=== PATIENT | female | born 1970 | race American Indian/Alaskan Native ===

== ENCOUNTER 2019-04-10 22:07 | Emergency (ER) | payer OTHER ==
--- NOTE | 2019-04-11 00:02 | XRay Report ---
LEFT FOOT 3 VIEWS INDICATION: Left middle toe pain and swelling. COMPARISON: No relevant prior imaging study available. FINDINGS: No acute, displaced fracture or dislocation is seen. No significant degenerative changes. No soft tis doug swelling. IMPRESSION: 1. No acute findings. Signer Name: Juan Herring MD Signed: 04/10/2019 11:58 PM Workstation Name: [id number]
--- NOTE | 2019-04-11 01:34 | Emergency Department Report ---
ED Lower Extremity HPI - General Chief Complaint: Extremity Injury, Lower Stated Complaint: MIDDLE TO ON LEFT FOOT EDEMA Time Seen by Provider: 04/11/19 01:04 Source: patient Mode of arrival: Ambulatory Limitations: No Limitations - History of Present Illness Initial Comments: This is a 49-year-old -[place] female who presents to the emergency room with pain and bruising to left third toe. Patient states she accidentally bumped her left foot against a barstool during her birthday celebration 3 weeks ago. She is currently soaking foot in [place] salt with minimal changes. She reports pain is worse with weightbearing or movement to left distal third toe. She denies numbness or tingling, swelling, or warmth. MD Complaint: foot injury Onset/Timin -: week(s) Injury: Toes: Left (Third distal toe) Type of Injury: blunt Place: street/outdoors Severity: moderate Severity scale (0 -10): 6 Improves With: immobilization Worsens With: weight bearing, movement, palpation Context: direct blow Associated Symptoms: ambulatory. denies: snap/pop sensation, swelling, numbness, tingling - Related Data Allergies Allergy/AdvReac Type Severity Reaction Status Date / Time No Known Allergies Allergy Unverified 04/10/19 23:38 ED Review of Systems ROS: Stated complaint: MIDDLE TO ON LEFT FOOT EDEMA Other details as noted in HPI Constitutional: denies: chills, fever Respiratory: denies: cough, shortness of breath, wheezing Cardiovascular: denies: chest pain, palpitations Gastrointestinal: denies: abdominal pain, nausea, diarrhea Musculoskeletal: arthralgia (Left third distal toe). denies: back pain, joint swelling Skin: denies: rash, lesions Neurological: denies: headache, weakness, paresthesias Psychiatric: denies: anxiety, depression ED Past Medical Hx - Past Medical History Previous Medical History?: No - Surgical History Past Surgical History?: No - Social History Smoking Status: Current Every Day Smoker Substance Use Type: None ED Physical Exam - General Limitations: No Limitations General appearance: alert, in no apparent distress - Respiratory Respiratory exam: Present: normal lung sounds bilaterally. Absent: respiratory distress - Cardiovascular Cardiovascular Exam: Present: regular rate, normal rhythm. Absent: systolic murmur, diastolic murmur, rubs, gallop - GI/Abdominal GI/Abdominal exam: Present: soft, normal bowel sounds - Extremities Exam Extremities exam: Present: normal inspection - Expanded Lower Extremity Exam Left Hip exam: Present: normal inspection, full ROM Upper Leg exam: Present: normal inspection, full ROM Knee exam: Present: normal inspection, full ROM, full knee extension. Absent: tenderness, swelling, abrasion, laceration, ecchymosis, deformity, crepidus, dislocation, erythema, effusion, pain w/ pronation/supination, posterior draw sign, pain/laxity with valgus, pain/laxity with varus Lower Leg exam: Present: normal inspection, full ROM Ankle exam: Present: normal inspection, full ROM Foot/Toe exam: Present: full ROM, tenderness (TTP third distal phalanx, pain with full range of motion). Absent: swelling, abrasion, laceration, ecchymosis, deformity, crepidus, erythema, amputation, puncture wound, nail avulsion Neuro vascular tendon exam: Present: no vascular compromise Gait: Positive: observed and normal - Neurological Exam Neurological exam: Present: alert, oriented X3, normal gait - Psychiatric Psychiatric exam: Present: normal affect, normal mood - Skin Skin exam: Present: warm, dry, intact, normal color. Absent: rash ED Course Vital Signs 04/10/19 22:13 Temperature 98.7 F Pulse Rate 95 H Respiratory 18 Rate Blood Pressure 147/95 O2 Sat by Pulse 99 Oximetry ED Lower Extremity MDM - Radiology Data Radiology results: report reviewed LEFT FOOT 3 VIEWS INDICATION: Left middle toe pain and swelling. COMPARISON: No relevant prior imaging study available. FINDINGS: No acute, displaced fracture or dislocation is seen. No significant degenerative changes. No soft tissue swelling. IMPRESSION: 1. No acute findings. - Medical Decision Making 49-year-old female complaining of left third toe pain for 3 weeks. Patient was examined by me. Patient is nontoxic appearing and stable. Vitals are normal. Obtained x-ray of left foot with no acute findings. Given history, exam, and work-up, there is low suspicion for acute fracture or osteomyelitis. There is pain with range of motion and normal strength ecchymosis or obvious deformity. Instructed to continue NSAIDs and rice therapy. Given strict return her precautions for delayed possible symptoms. Patient discharged with prompt follow-up with primary care physician. Critical care attestation.: If time is entered above; I have spent that time in minutes in the direct care of this critically ill patient, excluding procedure time. ED Disposition Clinical Impression: Toe pain Qualifiers: Laterality: left Qualified Code(s): M79.675 - Pain in left toe(s) Sprain of toe, third, left Qualifiers: Encounter type: initial encounter Qualified Code(s): S93.505A - Unspecified s prain of left lesser toe(s), initial encounter Disposition: TO HOME OR SELFCARE Is pt being admited?: No Condition: Stable Instructions: Arthralgia (ED), RICE Therapy (ED) Additional Instructions: Rest Use ice or heat on affected area for 20 minutes and off for 2 hours. Take pain medication every 6-8 hours as needed for pain. Follow up with Primary Care Provider in 2-3 days. Referrals: [facility] [Outside] - 3-5 Days [facility] [Outside] - 3-5 Days [facility] [Outside] - 3-5 Days Time of Disposition: 01:43
[2019-04-11 02:17] VITALS: BP 144/78
== END 2019-04-11 02:05 | disposition home or self-care (01) ==
LOC: ED 22:07
DX: S93.505A Unspecified sprain of left lesser toe(s), initial encounter (principal); F17.200 Nicotine dependence, unspecified, uncomplicated; W22.8XXA Striking against or struck by other objects, initial encounter; Y93.89 Activity, other specified; Y92.410 Unspecified street and highway as the place of occurrence of the external cause; Y99.8 Other external cause status